=== PATIENT | female | born 1970 | race Caucasian/White ===

== ENCOUNTER → 2022-11-02 | Day surgery (SDC) | payer BC, OTHER ==
[~2022-11-02] MED LIST: ABILIFY5 MG PO; ASPIRIN81 MG PO; B12 IM; CYCLOBENZAPRINE5 MG PO; FENTANYL CITRATE/PF 100MCG/2 ML INJ ONE; FOLIC ACID0.4 MG PO; LIDOCAINE HCL 2% LOCAL INJ 5 ML SDV VIAL INJ ONE; METOCLOPRAMIDE HCL 10 MG/2ML VIAL IV ONE; MIDAZOLAM HCL 2 MG/2 ML VIAL ONE; NEURONTIN300 MG PO; OMEPRAZOLE40 MG PO; POVIDONE IODINE 0.05% 0.05 % ML PO ONE; PROPOFOL IV EMULSION 10 MG/ML 20 ML VIAL ONE; REGLAN10 MG PO; TRELEGY ELLIPT1 EACH INH; VALIUM5 MG PO; ZOLOFT100 MG PO
[2022-11-02 16:20] VITALS: BP 106/59
== END | disposition home or self-care (01) ==
LOC: OR 12:08
PROVIDERS: ATTEND Internal Medicine Gastroenterology
DX: K21.9 Gastro-esophageal reflux disease without esophagitis (principal); K29.50 Unspecified chronic gastritis without bleeding; K22.89 Other specified disease of esophagus; K20.90 Esophagitis, unspecified without bleeding; K44.9 Diaphragmatic hernia without obstruction or gangrene; R63.4 Abnormal weight loss; R63.0 Anorexia; J44.9 Chronic obstructive pulmonary disease, unspecified; I28.8 Other diseases of pulmonary vessels; F41.9 Anxiety disorder, unspecified; F32.1 Major depressive disorder, single episode, moderate; F17.210 Nicotine dependence, cigarettes, uncomplicated; Z71.6 Tobacco abuse counseling; Z01.810 Encounter for preprocedural cardiovascular examination; Z79.82 Long term (current) use of aspirin; Z79.899 Other long term (current) drug therapy; Z86.718 Personal history of other venous thrombosis and embolism
CPT/HCPCS: 43239; 93005; C9113; J2001; J2250; J2704; J2765; J3010

== ENCOUNTER 2022-12-27 01:42 | Inpatient (IN) | payer BC, OTHER ==
[2022-12-27] VITALS (8 sets, daily range): BP systolic 102–150; BP diastolic 53–85; PULSE 60–84; RESP 16–20; TEMP 97.5–99.1; O2SAT 99–100
[~2022-12-27] VITALS: Ht 162.6 cm; Wt 49.9 kg
[~2022-12-27 01:42] MED LIST changes: -FENTANYL CITRATE/PF 100MCG/2 ML INJ ONE; -LIDOCAINE HCL 2% LOCAL INJ 5 ML SDV VIAL INJ ONE; -METOCLOPRAMIDE HCL 10 MG/2ML VIAL IV ONE; -MIDAZOLAM HCL 2 MG/2 ML VIAL ONE; -POVIDONE IODINE 0.05% 0.05 % ML PO ONE; -PROPOFOL IV EMULSION 10 MG/ML 20 ML VIAL ONE; +VARENICLINE1 EACH PO; +chantix
[2022-12-27] MEDS ORDERED: ONDANSETRON HCL INJ 2MG/ML 2ML 2 MG/ML VIAL IV STA (01:49)
[2022-12-27] MEDS ORDERED: SODIUM CHLORIDE 0.9% 1000ML 1,000 ML IV ONE (02:00)
[2022-12-27 02:08] LABS: BASOPHILS # (AUTO) 0.1 (0.0-0.1); BASOPHILS % 0.5 % (0.0-1.0); EOSINOPHILS # (AUTO) 0.1 (0.0-0.4); EOSINOPHILS % 0.8 % (0.0-6.0); HEMATOCRIT 37.7 % (34.2-44.1); HEMOGLOBIN 13.1 g/dL (12.0-16.0); LYMPHOCYTES # (AUTO) 3.1 (1.0-3.2); LYMPHOCYTES % 25.6 % (18.0-39.1); MEAN CORPUSCULAR HEMOGLOBIN 31.6 pg (28-32); MEAN CORPUSCULAR HGB CONC 34.7 g/dL (31-35); MEAN CORPUSCULAR VOLUME 91.1 fL (81-99); MONOCYTES # (AUTO) 0.8 (0.2-0.8); MONOCYTES % 6.1 % (4.4-11.3); NEUTROPHILS # (AUTO) 8.2 (2.1-6.9); NEUTROPHILS % 66.8 % (38.7-80.0); PLATELET COUNT 292 x10e3/uL (140-360); RED BLOOD COUNT 4.14 x10e6/uL (3.6-5.1); RED CELL DISTRIBUTION WIDTH 12.7 % (11.7-14.4)
[2022-12-27] MEDS ORDERED: Morphine 4mg INJECTION 4 MG/ML INJ ONE (02:09)
[2022-12-27] MEDS ORDERED: Morphine 4mg INJECTION 4 MG/ML INJ IV ONE (02:15)
[2022-12-27 02:27] LABS: ALBUMIN 4.5 g/dL (3.5-5.0); ALBUMIN/GLOBULIN RATIO 1.3 (0.8-2.0); ANION GAP 16.7 mmol/L (8-16); CALCIUM 10.3 mg/dL (8.4-10.2); CREATININE, SERUM 0.98 mg/dL (0.57-1.11); POTASSIUM 3.7 mmol/L (3.5-5.1)
[2022-12-27] MEDS ORDERED: Morphine 4mg INJECTION 4 MG/ML INJ IV PRN (02:30)
[2022-12-27] MEDS ORDERED: HALOPERIDOL LACTATE 5 MG/ML VIAL IV ONE (03:00)
[2022-12-27] MEDS: SODIUM CHLORIDE 0.9% 1000ML 1,000 ML IV SCH ×4 (03:01→23:06)
[2022-12-27] MEDS: ONDANSETRON HCL INJ 2MG/ML 2ML 2 MG/ML VIAL IV PRN (05:04)
[2022-12-27] MEDS ORDERED: HYDRALAZINE HCL 20 MG/ML VIAL ONE (12:05)
[2022-12-27] MEDS ORDERED: POVIDONE IODINE 0.05% 0.05 % ML PO ONE (12:05)
[2022-12-27] MEDS ORDERED: LIDOCAINE HCL 2% LOCAL INJ 5 ML SDV VIAL INJ ONE (12:05)
[2022-12-27] MEDS ORDERED: DEXAMETHASONE SOD PHOS INJ 4 MG/ML SDV ONE (12:05)
[2022-12-27] MEDS ORDERED: PROPOFOL IV EMULSION 10 MG/ML 20 ML VIAL ONE (12:05)
[2022-12-27] MEDS ORDERED: ROCURONIUM BROMIDE 10 MG/ML 5ML VIAL IV ONE (12:05)
[2022-12-27] MEDS ORDERED: SEVOFLURANE INHAL SOLN 250 ML PEN BTL ONE (12:05)
[2022-12-27] MEDS ORDERED: ONDANSETRON HCL INJ 2MG/ML 2ML 2 MG/ML VIAL ONE (12:05)
[2022-12-27] MEDS ORDERED: ACETAMINOPHEN 1000 MG/100 ML IV PRN (12:30)
[2022-12-27] MEDS ORDERED: NALOXONE HCL INJ 0.4 MG/ML AMP IV PRN (12:30)
[2022-12-27] MEDS ORDERED: HYDROMORPHONE 0.2MG/ML-SOD CHL 30ML PCA SYRINGE IV PRN (12:30)
[2022-12-27] MEDS: SODIUM CHLORIDE 0.9% 250ML IRRIG IR SCH ×3 (12:30→20:30)
[2022-12-27] MEDS ORDERED: HYDROMORPHONE 0.2MG/ML-SOD CHL 30ML PCA SYRINGE IV ONE (12:32)
[2022-12-27] MEDS ORDERED: MIDAZOLAM HCL 2 MG/2 ML VIAL ONE (12:53)
[2022-12-27] MEDS ORDERED: FENTANYL CITRATE/PF 100MCG/2 ML INJ ONE (12:53)
[2022-12-28] VITALS (9 sets, daily range): BP systolic 116–139; BP diastolic 56–87; PULSE 61–95; RESP 16–21; TEMP 97.1–98.7; O2SAT 97–100
[2022-12-28] MEDS: SODIUM CHLORIDE 0.9% 250ML IRRIG IR SCH ×6 (00:31→21:06)
[2022-12-28 04:55] LABS: BASOPHILS % 0.1 % (0.0-1.0); EOSINOPHILS % 0.1 % (0.0-6.0); HEMATOCRIT 28.1 % (34.2-44.1); HEMOGLOBIN 9.3 g/dL (12.0-16.0); LYMPHOCYTES # (AUTO) 1.9 (1.0-3.2); LYMPHOCYTES % 10.8 % (18.0-39.1); MEAN CORPUSCULAR HEMOGLOBIN 31.8 pg (28-32); MEAN CORPUSCULAR HGB CONC 33.1 g/dL (31-35); MEAN CORPUSCULAR VOLUME 96.2 fL (81-99); MONOCYTES # (AUTO) 1.6 (0.2-0.8); MONOCYTES % 8.7 % (4.4-11.3); NEUTROPHILS # (AUTO) 14.3 (2.1-6.9); NEUTROPHILS % 79.9 % (38.7-80.0); PLATELET COUNT 216 x10e3/uL (140-360); RED BLOOD COUNT 2.92 x10e6/uL (3.6-5.1); RED CELL DISTRIBUTION WIDTH 13.2 % (11.7-14.4)
[2022-12-28 05:14] LABS: CALCIUM 8.7 mg/dL (8.4-10.2); CREATININE, SERUM 0.71 mg/dL (0.57-1.11)
[2022-12-28] MEDS: SODIUM CHLORIDE 0.9% 1000ML 1,000 ML IV SCH ×3 (09:43→20:49)
[2022-12-28] MEDS: ONDANSETRON HCL INJ 2MG/ML 2ML 2 MG/ML VIAL IV PRN (14:36)
[2022-12-28] MEDS ORDERED: HYDROMORPHONE 0.2MG/ML-SOD CHL 30ML PCA SYRINGE IV PRN (15:45)
[2022-12-29] VITALS (12 sets, daily range): BP systolic 123–141; BP diastolic 63–74; PULSE 62–84; RESP 17–19; TEMP 97.3–98.9; O2SAT 97–100
[2022-12-29] MEDS: SODIUM CHLORIDE 0.9% 250ML IRRIG IR SCH ×4 (00:59→12:30)
[2022-12-29] MEDS: SODIUM CHLORIDE 0.9% 1000ML 1,000 ML IV SCH ×2 (06:28→16:40)
[2022-12-29 08:16] LABS: BASOPHILS % 0.3 % (0.0-1.0); EOSINOPHILS % 0.4 % (0.0-6.0); HEMATOCRIT 26.2 % (34.2-44.1); HEMOGLOBIN 8.7 g/dL (12.0-16.0); LYMPHOCYTES % 8.7 % (18.0-39.1); MEAN CORPUSCULAR HEMOGLOBIN 31.5 pg (28-32); MEAN CORPUSCULAR HGB CONC 33.2 g/dL (31-35); MEAN CORPUSCULAR VOLUME 94.9 fL (81-99); MONOCYTES # (AUTO) 0.8 (0.2-0.8); MONOCYTES % 6.9 % (4.4-11.3); NEUTROPHILS # (AUTO) 9.1 (2.1-6.9); NEUTROPHILS % 83.3 % (38.7-80.0); PLATELET COUNT 190 x10e3/uL (140-360); RED BLOOD COUNT 2.76 x10e6/uL (3.6-5.1); RED CELL DISTRIBUTION WIDTH 12.8 % (11.7-14.4)
[2022-12-29 08:35] LABS: ANION GAP 16.5 mmol/L (8-16); CALCIUM 8.9 mg/dL (8.4-10.2); CREATININE, SERUM 0.64 mg/dL (0.57-1.11); POTASSIUM 3.5 mmol/L (3.5-5.1)
[2022-12-29] MEDS ORDERED: BISACODYL 10 MG SUPP PR ONE (11:00)
[2022-12-30] VITALS (11 sets, daily range): BP systolic 118–136; BP diastolic 61–80; PULSE 61–84; RESP 16–20; TEMP 97.2–98.8; O2SAT 95–100
[2022-12-30] MEDS: SODIUM CHLORIDE 0.9% 1000ML 1,000 ML IV SCH ×2 (02:41→22:00)
[2022-12-30 07:18] LABS: BASOPHILS % 0.5 % (0.0-1.0); EOSINOPHILS # (AUTO) 0.3 (0.0-0.4); EOSINOPHILS % 3.2 % (0.0-6.0); HEMATOCRIT 24.3 % (34.2-44.1); HEMOGLOBIN 8.4 g/dL (12.0-16.0); MEAN CORPUSCULAR HEMOGLOBIN 31.6 pg (28-32); MEAN CORPUSCULAR HGB CONC 34.6 g/dL (31-35); MEAN CORPUSCULAR VOLUME 91.4 fL (81-99); MONOCYTES # (AUTO) 0.7 (0.2-0.8); MONOCYTES % 8.5 % (4.4-11.3); NEUTROPHILS # (AUTO) 5.8 (2.1-6.9); NEUTROPHILS % 74.5 % (38.7-80.0); PLATELET COUNT 172 x10e3/uL (140-360); RED BLOOD COUNT 2.66 x10e6/uL (3.6-5.1)
[2022-12-30 07:45] LABS: ANION GAP 10.7 mmol/L (8-16); BLOOD UREA NITROGEN < 5 mg/dL (7-26); CALCIUM 8.8 mg/dL (8.4-10.2); CARBON DIOXIDE 26 mmol/L (22-29); CHLORIDE 105 mmol/L (98-107); CREATININE, SERUM 0.61 mg/dL (0.57-1.11); GLUCOSE 105 mg/dL (74-118); SODIUM 139 mmol/L (136-145)
[2022-12-30 07:46] LABS: BUN/CREATININE RATIO 8 (6-25)
[2022-12-30 07:48] LABS: POTASSIUM 2.7 mmol/L (3.5-5.1)
[2022-12-30] MEDS: ONDANSETRON HCL INJ 2MG/ML 2ML 2 MG/ML VIAL IV PRN ×2 (09:10→19:49)
[2022-12-30] MEDS: HYDROMORPHONE 1MG/1ML INJ IV PRN ×4 (09:10→19:49)
[2022-12-30] MEDS ORDERED: KCL 20 MEQ PACKET/ ORAL SOLN PO ONE ×2 (09:45→13:00)
[2022-12-30] MEDS ORDERED: HYDROCODONE/APAP 7.5MG-325MG 1 EA TAB PO PRN (16:15)
[2022-12-30] MEDS ORDERED: KCL 20 MEQ PACKET/ ORAL SOLN NG ONE (17:00)
[2022-12-31] MEDS: HYDROMORPHONE 1MG/1ML INJ IV PRN ×2 (00:21→03:43)
[2022-12-31] MEDS: ONDANSETRON HCL INJ 2MG/ML 2ML 2 MG/ML VIAL IV PRN ×2 (00:21→03:43)
[2022-12-31 01:28] VITALS: BP 136/82; PULSE 61; RESP 16; TEMP 97.6; O2SAT 98
[2022-12-31 05:15] VITALS: BP 122/71; PULSE 60; RESP 19; TEMP 97.1; O2SAT 100
== END 2022-12-31 09:18 | disposition home or self-care (01) | DRG 329 ==
LOC: ER 01:51 → ERHOLD 02:19 → MED/SURG 07:30
PROVIDERS: ADMIT Surgery; ATTEND Surgery
PROC: 0DTF0ZZ Resection of Right Large Intestine, Open Approach (ICD-10-PCS; principal; 2022-12-27 10:48)
DX: D12.2 Benign neoplasm of ascending colon (principal); E43 Unspecified severe protein-calorie malnutrition; Z68.1 Body mass index [BMI] 19.9 or less, adult; I10 Essential (primary) hypertension
CPT/HCPCS: 36415; 80048; 80053; 82550; 82553; 83690; 84484; 85025; 88304; 88307; 93005; 94799; 96361; 96366; 99284; J0694; J1100; J1170; J1630; J2001; J2250; J2270; J2405; J7030